=== PATIENT | female | born 1995 | race Caucasian/White ===

== ENCOUNTER 2018-08-14 11:24 | Day surgery (SDC) | payer OTHER ==
[2018-08-14] MEDS ORDERED: SOD CHLORIDE 0.9% 1,000 ML IV (12:00)
[2018-08-14] MEDS ORDERED: CEFAZOLIN 2 GM/50 ML (PMX) 50 ML IVPB (12:00)
[2018-08-14] MEDS ORDERED: ONDANSETRON 4 MG INJ IV (15:30)
[2018-08-14] MEDS ORDERED: MEPERIDINE 25 MG INJ IV (15:30)
[2018-08-14] MEDS ORDERED: DIPHENHYDRAMINE 50 MG INJ IV (15:30)
[2018-08-14] MEDS ORDERED: HYDROmorphONE 1 MG/5 ML IV SYRINGE IV ×2 (15:30)
[2018-08-14] MEDS ORDERED: FENTAnyl 50 MCG/ML VIAL IV ×3 (15:30)
[2018-08-14] MEDS ORDERED: METOCLOPRAMIDE 10 MG INJ IV (15:30)
[2018-08-14] MEDS ORDERED: BUPIVACAINE 0.25% (MPF) 30 ML INJ (15:34)
[2018-08-14] MEDS ORDERED: FENTAnyl 50 MCG/ML VIAL (15:45)
[2018-08-14] MEDS ORDERED: ROPIVACAINE 0.5 % 30 ML VIAL (15:46)
[2018-08-14] MEDS ORDERED: LIDOCAINE 100 MG SYRINGE (16:04)
[2018-08-14] MEDS ORDERED: PROPOFOL 20 ML (16:04)
[2018-08-14] MEDS ORDERED: SUCCINYLCHOLINE CHLORIDE 100 MG/5 ML SYG IV (16:04)
[2018-08-14] MEDS ORDERED: ROCURONIUM 50 MG INJ (16:04)
[2018-08-14] MEDS ORDERED: SUGAMMADEX SODIUM 200 MG/2 ML VIAL IV (16:04)
[2018-08-14] MEDS ORDERED: CEFAZOLIN 1 GM INJ (16:04)
[2018-08-14] MEDS ORDERED: HYDROCODONE/APAP (5/325) TAB PO (17:00)
[2018-08-14] MEDS: HYDROmorphONE 1 MG/5 ML IV SYRINGE IV (17:02)
== END 2018-08-14 18:37 | disposition home or self-care (01) ==
LOC: SDS 11:24
DX: K80.10 Calculus of gallbladder with chronic cholecystitis without obstruction (principal); K82.8 Other specified diseases of gallbladder
CPT/HCPCS: 47562; 88304